=== PATIENT | female | born 1980 | race Caucasian/White ===

== ENCOUNTER 2018-10-25 03:18 | Emergency (ER) | payer BC, SELFPAY ==
[2018-10-25 03:19] VITALS: BP 109/75; PULSE 103; RESP 16; TEMP 37.6; O2SAT 98; BMI 29.6
[2018-10-25 03:22] VITALS: BP 109/75; PULSE 103; RESP 16; TEMP 37.6; O2SAT 98
--- NOTE | 2018-10-25 03:36 | ED.DCSUM_ITS ---
History of Present Illness Chief Complaint: Complaint Informant: Patient Onset: Days - 2 Narrative: Dysuria and malodorous urine 2 days ago. Yesterday had telephone eval by physician, called in Macrobid, status post 2 doses, along with taking [id number] Pyridium yesterday evening. Woke up couple hours ago with fever and chills, temp was 100.1. Nausea without vomiting. Similar symptoms back in February with same presentation going to the ED. Treated with IV antibiotics, reported recommended hospitalization however patient states she went home on antibiotics and did fine. She is visiting from [place]. Denies back pain. Denies any past medical history. History of complicated due to adhesions. Prior similar symptoms: Yes Past Medical History - Allergies and Home Meds Allergies/Adverse Reactions: Allergies No Known Allergies Allergy (Verified 10/25/18 03:21) Primary Care Physician: Jerzy Agudelo,Out of [Primary Care Provider] - Surgical History: - - C-sections, bladder repair Smoking Status: Never smoker Review of Systems General: Reports: Chills, Fever. Denies: Sweats Eyes: Denies: Visual changes - bilaterally, Diplopia ENT: Denies: Rhinorrhea, Sore throat Cardiovascular: Denies: Chest pain, Palpitations Respiratory: Denies: Dyspnea, Cough, Dyspnea on exertion Gastrointestinal: Reports: Nausea. Denies: Abdominal pain, Vomiting, Diarrhea, Melena, Hematochezia Genitourinary: Reports: Dysuria. Denies: Hematuria, Frequency Musculoskeletal: Denies: Back pain, Extremity Pain Skin: Denies: Rash, Wounds Neurological: Denies: Headache, Weakness, Numbness Physical Exam Vital Signs/Narrative: Vital Signs Temp Pulse Resp BP Pulse Ox 10/25/18 03:22 99.6 F H 103 H 16 109/75 98 10/25/18 03:19 99.6 F H 103 H 16 109/75 98 Inital Vital Signs reviewed: Yes General: Well nourished, Well developed, No Acute Distress, - - Nontoxic Head: Normocephalic, Atraumatic Eyes: Perrl, EOMI ENT: Moist mucous membranes, No rhinorrhea Neck: Supple, Nontender Cardiovascular: Regular rate, Regular rhythm, No murmurs Respiratory: No distress, CTA bilaterally, Chest nontender Abdomen: Soft, Nondistended, Normal bowel sounds, - - Mild suprapubic tenderness without guarding or rebound Back: Nontender, Normal Inspection. Negative for: CVA tenderness Extremities: Nontender, No edema Skin: Normal color, No rash Neurological: Alert, Oriented x3, Cranial nerves II-XII grossly intact, Normal Strength, Normal Sensation Psychological: Normal affect, Normal Mood Diagnostic/Tx/Re-eval Abnormal Lab Results 10/25/18 10/25/18 10/25/18 03:30 03:30 03:30 WBC 11.8 H RBC 4.29 Hgb 12.8 Hct 37.4 MCV 87.2 MCH 29.8 MCHC 34.2 RDW Std Deviation 42.1 RDW Coeff of Mike 13.2 Plt Count 283 MPV 10.1 Immature Gran % (Auto) 0.300 Neut % (Auto) 84.3 H Lymph % (Auto) 8.6 L Barrow % (Auto) 5.3 Eos % (Auto) 1.1 Baso % (Auto) 0.4 Absolute Neuts (auto) 9.9 H Absolute Lymphs (auto) 1.01 Nucleated RBC % 0 Sodium Potassium Chloride Carbon Dioxide Anion Gap BUN Creatinine Estim Creat Clear Calc Est GFR (MDRD) Af Amer Est GFR (MDRD) Non-Af BUN/Creatinine Ratio Glucose Calcium Urine Color Yellow Urine Clarity Sl. Cloudy Urine pH 7.0 Ur Specific Russell 1.005 Urine Protein Negative Urine Glucose (UA) Normal Urine Ketones Negative Urine Occult Blood Negative Urine Nitrite Positive H Urine Bilirubin 1 H Urine Urobilinogen 1 H Ur Leukocyte Esterase 100 H Urine RBC 0 SEEN Urine WBC 0-5 SEEN Ur Squamous Epith Cells 0-5 SEEN Urine Bacteria RARE Urine Mucus 0 SEEN Urine Test Negative 10/25/18 03:30 WBC RBC Hgb Hct MCV MCH MCHC RDW Std Deviation RDW Coeff of Mike Plt Count MPV Immature Gran % (Auto) Neut % (Auto) Lymph % (Auto) Barrow % (Auto) Eos % (Auto) Baso % (Auto) Absolute Neuts (auto) Absolute Lymphs (auto) Nucleated RBC % Sodium 140 Potassium 4.4 Chloride 107 Carbon Dioxide 24.0 Anion Gap 9 BUN 11 Creatinine 0.78 Estim Creat Clear Calc 102.66 Est GFR (MDRD) Af Amer 105 Est GFR (MDRD) Non-Af 87 BUN/Creatinine Ratio 14.0 Glucose 103 Calcium 8.8 Urine Color Urine Clarity Urine pH Ur Specific Russell Urine Protein Urine Glucose (UA) Urine Ketones Urine Occult Blood Urine Nitrite Urine Bilirubin Urine Urobilinogen Ur Leukocyte Esterase Urine RBC Urine WBC Ur Squamous Epith Cells Urine Bacteria Urine Mucus Urine Test - Medical Decision Making Patient nontoxic temp of 99.6 in the ED. Check urine added a culture noted nitrites. White count 11,normal renal panel. Treated Rocephin IV, Zofran, Toradol. Remains stable. We will switch her over to Keflex 3 times daily for treatment of complicated UTI. Patient discharged outpatient follow-up. Signs and symptoms discussed return. All questions were answered. ED Disposition - Plan for ED Patient: Disposition: Home or Assisted Living Diagnosis: Complicated UTI (urinary tract infection) Instructions: Bladder Infection, Female (Adult) Prescriptions: Cephalexin [Keflex] 500 mg PO TID #30 cap Ondansetron [Zofran Odt] 4 mg PO Q8H PRN PRN #10 tablet PRN Reason: Nausea Referrals: [facility] Doctor,Out of [Primary Care Provider] - Additional Instructions: Stop Macrobid. take new antibiotic. Urine culture pending.
[2018-10-25] MEDS: Ketorolac 15 MG/ML Vial IV (03:57)
[2018-10-25] MEDS: Ondansetron 4 MG/2 ML Vial IV (03:57)
[2018-10-25] MEDS: Ceftriaxone 1 GM/50 ML BAG IV (03:57)
[2018-10-25 04:07] VITALS: BP 109/75; PULSE 103; RESP 16; TEMP 37.6; O2SAT 98
[2018-10-25 04:09] LABS: Mucous, Urine 0 SEEN /hpf (<or=2+); Red Blood Cells-Urine 0 SEEN /hpf (0-5)
[2018-10-25 04:14] LABS: Color, Urine Yellow (Yellow); Glucose, Dipstick Normal (Normal); Ketone-Dipstick Negative (Negative); Leukocyte Esterase-Dipstick 100 /ul (Negative); Nitrite-Dipstick Positive (Negative); Occult Blood-Urine Negative /ul (Negative); Protein-Dipstick Negative (Negative); Specific Gravity, Urine 1.005 (1.002-1.030); Urine Clarity Sl. Cloudy (Clear); Urine Urobilinogen 1 mg/dl (Normal)
[2018-10-25 04:15] LABS: Absolute Lymphocyte Count 1.01 X10^3/uL (0.83-4.51); Absolute Neutrophil Count 9.9 X10^3/uL (2.0-7.7); Basophil# 0.05 X10^3/uL; Basophil% 0.4 % (0-1); Eosinophil# 0.13 X10^3/uL; Eosinophils% 1.1 % (0-5); Hematocrit 37.4 % (37-47); Hemoglobin 12.8 g/dL (12.0-15.0); Internal QC Validated? YES +Cl - CLEAR BKGD; Lymphocyte # 1.01 X10^3/ul (4.0); Lymphocyte % 8.6 % (19-41); Mean Corp Hgb Conc 34.2 g/dL (32-36); Mean Corpuscular Hgb 29.8 pg (27.0-32.0); Mean Corpuscular Volume 87.2 fL (81-99); Mean Platelet Vol. 10.1 fl (6.2-12.0); Monocyte# 0.63 X10^3/uL; Monocyte% 5.3 % (0-10); NRBC Flagged by Analyzer 0 % (0-5); Neutrophil # 9.92 X10^3/uL (2.7-7.7); Neutrophil % 84.3 % (47-70); Platelet Count 283 K/mm3 (150-450); Pregnancy, Urine Negative Negative; RBC Distribution Width CV 13.2 % (11.6-14.6); RBC Distribution Width SD 42.1 fl (35.1-43.9); Red Blood Count 4.29 M/mm3 (4.2-5.4); Urine Bilirubin Dipstick 1 mg/dL (Negative); White Blood Count 11.8 K/mm3 (4.4-11.0)
[2018-10-25 04:21] LABS: Bacteria RARE /hpf (None Seen); Squamous Epithelial Cells - UA 0-5 SEEN /hpf (5-10); White Blood Cells 0-5 SEEN /hpf (0-5)
[2018-10-25 04:41] LABS: Anion Gap 9 (5-15); BUN 11 mg/dL (7-18); Calcium,Total 8.8 mg/dL (8.5-10.1); Chloride 107 mmol/L (98-107); Creatinine, Serum 0.78 mg/dL (0.55-1.02); EST Glomerular Filtration Rate 87 mL/min (>60); Est Glom Filt Rate - Afr Amer 105 mL/min (>60); Estimated Creatinine Clearance 102.66 ml/min; Glucose 103 mg/dL (74-106); Potassium 4.4 mmol/L (3.5-5.1); Sodium Level 140 mmol/L (136-145)
[2018-10-25 05:00] VITALS: BP 97/67; PULSE 80; RESP 16; TEMP 37.7; O2SAT 100
[2018-10-25 05:25] VITALS: BP 97/67; PULSE 80; RESP 16; O2SAT 100
== END 2018-10-25 05:25 | disposition home or self-care (01) ==
PROVIDERS: Emergency Provider Emergency Medicine
DX: N39.0 Urinary tract infection, site not specified (principal)
CPT/HCPCS: 80048; 81001; 81025; 85025; 87086; 87088; 96365; 96375; 99285; J7030; A4216; J2405